=== PATIENT | female | born 1970 | race Caucasian/White ===

== ENCOUNTER → 2017-04-12 | Outpatient (CLI) | payer OTHER ==
--- NOTE | 2017-04-12 15:56 | MAMMOGRAPHY REPORT ---
BILATERAL DIGITAL DIAGNOSTIC MAMMOGRAM TOMOSYNTHESIS WITH CAD AND TARGETED BILATERAL ULTRASOUND: 04/12 CLINICAL HISTORY: The patient reports palpable lumps in bilateral breasts. She has a history of a pr ior biopsy of a right 12:00 breast mass at an outside institution in 2015, which yielded a benign fib roadenoma. TECHNIQUE: Breast tomosynthesis in addition to standard 2D mammography was performed. Current study was also evaluated with a Computer Aided Detection (CAD) system. Bilateral CC and MLO 2-D and tomosy nthesis images were obtained. COMPARISON: Comparison is made to exams dated: 10/12/2015 mammogram and 10/08/2015 mammogram - [employer] [facility]. BREAST COMPOSITION: The tissue of both breasts is heterogeneously dense, which may obscure small mas ses. FINDINGS: A triangle marker addison the site of the palpable lump in the right 12:00 breast. A triang le marker also addison the site of the palpable lump in the left upper outer quadrant at approximately 12 to 1:00. An oval obscured mass measuring approximately 2.4 cm is seen at the site of the palpable lump in the left upper outer quadrant. There is also a possible obscured 18 mm mass seen within the left upper outer quadrant far posteriorly. The remainder of both breasts are stable compared to nisa or exams, without suspicious masses, calcifications, or areas of architectural distortion noted. Bio psy marker clips are again noted within the right 12:00 breast and left upper outer quadrant. Targeted ultrasound was performed of the areas of the palpable lumps pointed out by the patient to th e right 11:30 to 12:00 breast, 2-3 cm from the nipple. In the right breast at 12:00, 2 cm from the n ipple, again noted is an oval circumscribed hypoechoic solid mass which measures 1.5 x 0.9 x 1.4 cm. This is not significantly changed compared to the September 2015 exam and was previously biopsied and y ielded a fibroadenoma. Some tenderness was noted when scanning over this mass. Multiple small anech oic cysts were seen scattered throughout the right 11:30 to 12:00 breast, including two 3 mm cyst in the right 12:00 breast, 2 cm from the nipple, a 7 x 8 mm cyst with a thin internal septation in the r ight 11:30 breast, 3 cm from the nipple, and a 5 mm cyst with a thin septation in the right 11:30 per iareolar breast. Targeted ultrasound was performed of the area of the palpable lump pointed out by the patient in the left breast at approximately 12:00, 3 cm from the nipple. At the site of the palpable lump there is an oval circumscribed mass which measures 2.0 x 1.1 x 1.9 cm. The mass is predominantly anechoic and cystic with some echogenic material seen within it compatible with debris. This corresponds with th e obscured mammographic mass and is consistent with a benign complicated cyst. Other cysts were seen within the left breast during the ultrasound exam, including a 9 mm cyst in the left breast at 1:00, 2 cm from the nipple, and a 1.6 cm simple cyst in the left breast at 1:00, 4 cm from the nipple. In the left breast at 2:00, 6 cm from the nipple, there is an anechoic mass with a few thin internal se ptations measuring 1.9 x 1.1 cm. This corresponds with an obscured mammographic mass and is also con sistent with a benign cyst. IMPRESSION: ACR BI-RADS CATEGORY 2: BENIGN, TARGETED ULTRASOUND ACR BI-RADS CATEGORY 2: BENIGN 1. At the site of the palpable lumps in the right 12:00 breast, there is a hypoechoic 1.5 cm solid m ass which is stable compared to the 2016 exam and yielded a benign fibroadenoma on pathology. Multip le other small adjacent cysts were seen in this region during the ultrasound exam. 2. Benign 2 cm cyst at the site of the other palpable lump in the left 12:00 breast. Multiple other adjacent cysts were seen during the ultrasound exam. There is no mammographic or targeted sonographic evidence of malignancy. Recommend clinical follow-u p for bilateral breast lumps, and recommend routine bilateral screening mammograms in one year. The patient has been verbally notified of the results. Approximately 10% of breast cancers are not detected with mammography. A negative mammographic report should not delay biopsy if a clinically suggestive mass is present. Elle Sherwood M.D. ah/:04/12/2017 12:05:38 [employer] Edge Machine Operator: Nellie BARTLETT(R)(M), [facility] letter sent: Normal 1/2 BI-RADS Code: ACR BI-RADS Category 2: Benign Ultrasound BI-RADS: ACR BI-RADS Category 2: Benign
== END | disposition home or self-care (01) ==
LOC: C.MAMM 10:38
PROVIDERS: ATTEND Family Medicine
DX: N60.11 Diffuse cystic mastopathy of right breast (principal); N60.12 Diffuse cystic mastopathy of left breast; N63.41 Unspecified lump in right breast, subareolar